=== PATIENT | female | born 1970 | race Caucasian/White ===

== ENCOUNTER 2016-04-08 13:32 | Emergency (ER) | payer BC ==
[~2016-04-08] VITALS: Ht 162.6 cm; Wt 90.1 kg
[~2016-04-08 13:32] MED LIST: ONDA4TAB35 PO; PANT40TA3 PO
[2016-04-08 13:40] VITALS: Ht 162.6 cm; Wt 90.1 kg
--- NOTE | 2016-04-08 16:56 | ERD ---
ER Documentation Chief Complaint Date/Time DATE: 04/08/16 TIME: 16:55 Chief Complaint anxitey attack, feels papitations, tearful at intake HPI 45-year-old woman with history of anxiety has been having palpitations intermittently over the last few days. Her mother recently and she was coordinating her care during the last few weeks of her life and states she took on a lot of stress. She denies suicidal homicidal ideation. She denies chest pain or shortness of breath, no fevers or chills, no calf or leg swelling. Patient states she has had similar episodes of palpitations in the past associated with anxiety. ROS All systems reviewed and are negative except as per history of present illness. Medications Home Meds Discontinued Scripts Ondansetron Hcl* (Zofran* ODT) 4 mg -ODT Tab.disper, 4 MG PO Q6 Y for NAUSEA AND /OR VOMITING, #30 TAB Prov:JUANA ROSAS MD 05/20/15 Pantoprazole* (Protonix*) 40 Mg Tablet.dr, 40 MG PO DAILY, #20 TAB Prov:JUANA ROSAS MD 05/20/15 Allergies Allergies: Coded Allergies: latex (Verified Allergy, Intermediate, rashes, 04/08/16) acetaminophen (Verified Adverse Reaction, Unknown, 04/08/16) hydrocodone (Verified Adverse Reaction, Unknown, 04/08/16) Uncoded Allergies: Onion (Allergy, Severe, tongue/face and leg swelling, 01/19/11) PMhx/Soc Anxiety, gastritis, gastric bypass surgery History of Surgery: Yes (GASTRIC BYPASS.SMALL BOWEL SURGERY) Anesthesia Reaction: No Hx Neurological Disorder: No Hx Respiratory Disorders: No Hx Cardiac Disorders: No Hx Psychiatric Problems: No Hx Miscellaneous Medical Probl: No Hx Alcohol Use: No Hx Substance Use: No Hx Tobacco Use: No FmHx Family History: No diabetes Physical Exam Vitals Vital Signs Date Time Temp Pulse Resp B/P Pulse Ox O2 Delivery O2 Flow Rate FiO2 04/08/16 18:12 98.1 61 18 119/59 99 Room Air 04/08/16 13:40 97.8 80 20 138/90 99 Physical Exam GENERAL: Well-developed, well-nourished, patient is tearful HEENT: Moist mucous membranes, pink conjunctiva, no cervical spine tenderness or step-off deformities, no goiter, no jaundice or icterus, extraocular movements intact without pain. No submandibular induration, and no pharyngeal erythema NEURO: Alert and oriented 3, cranial nerves II through XII intact bilaterally, pupils equal round reactive to light, no focal deficits or facial asymmetry, sensation intact distally Strength 5/5 in upper and lower extremities bilaterally CARDIAC: Regular rate and rhythm, no murmurs rubs or gallops LUNGS: Clear bilaterally no wheezing crackles or stridor ABDOMEN: Soft nontender, no guarding, no rigidity, no rebound, no psoas sign no obturator sign. Normoactive bowel sounds SKIN: Warm and dry to touch, no abrasions, contusions, or hematomas, no lacerations, no ecchymosis, no target lesions, and without ulcers EXTREMITIES: No clubbing cyanosis or edema, calves are bilaterally symmetrical, no Homans sign, no popliteal cord sign. Distal pulses equal and bilateral PSYCH: Anxious and tearful Results 24 hrs Current Medications Medications (Trade) Dose Ordered Sig/Yeimy Route PRN Reason Start Time Stop Time Status Last Admin Dose Admin Lorazepam (Ativan) 0.5 mg ONCE ONCE PO 04/08/16 17:00 04/08/16 17:01 DC 04/08/16 17:13 Procedures/[facility] [place] I administered lorazepam 0.5 mg p.o. for her symptoms with good effect. EKG performed, read by me: 69 bpm, normal sinus rhythm, normal axis, no acute ST segment changes, narrow QRS complex, with good R-wave progression in precordial leads. One AP view of the chest performed, read by me reveals no acute infiltrates, normal mediastinum, sharp costophrenic and cardiac borders, no air under the diaphragm. Otherwise unremarkable chest x-ray. Differential diagnoses considered, included but not limited to acute coronary syndrome, pulmonary embolism, aortic dissection, abdominal aortic aneurysm, sepsis, stroke, meningitis, encephalitis, pneumonia, appendicitis, cholecystitis , bowel obstruction, pyelonephritis, nephrolithiasis, cystitis, as well as metabolic, hematologic, and electrolyte abnormalities. As well as abscess, cellulitis, fractures, and dislocations. Patient feels much better at this time, and vital signs are normal, symptoms have improved. I did give strict instructions to return to the ED if symptoms continue or worsen, patient will otherwise follow-up with primary care physician. Patient understood instructions and agreed to plan. Departure Diagnosis: Primary Impression: Anxiety Additional Impression: Palpitation Condition: Good PARISH GILLESPIE MD Apr 08, 2016 16:56
[2016-04-08] MEDS ORDERED: LORAZEPAM 0.5 MG TAB PO ONE (17:00)
--- NOTE | 2016-04-08 17:17 | RADRPT ---
PROCEDURE: XR Chest. CLINICAL INDICATION: chest pain, shortness of breath TECHNIQUE: Single frontal view of the chest was obtained COMPARISON: None FINDINGS: The heart and mediastinum are within normal limits. The lungs are clear. There is no pleural effusion or pneumothorax. RPTAT: AA IMPRESSION: No acute disease. .Sebas Bravo MD, MD Date Time Electronically viewed and signed by .Sebas Bravo MD, on 04/08/2016 17:17 .S/
[2016-04-08 18:12] VITALS: BP 119/59; PULSE 61; RESP 18; TEMP 98.1
== END 2016-04-08 18:15 | disposition home or self-care (01) ==
LOC: E/R 13:32
DX: F41.9 Anxiety disorder, unspecified (principal); Z91.040 Latex allergy status
CPT/HCPCS: 71010; 99283; Z7610; 93005

== ENCOUNTER 2017-07-15 09:50 | Emergency (ER) | END 2017-07-15 16:10 | disposition home or self-care (01) ==

== ENCOUNTER 2017-09-16 20:22 | Emergency (ER) | END 2017-09-17 00:41 | disposition home or self-care (01) ==

== ENCOUNTER 2018-01-09 15:42 | Emergency (ER) | END 2018-01-09 18:08 | disposition home or self-care (01) ==